=== PATIENT | female | born 1930 | race Caucasian/White ===

== ENCOUNTER 2017-02-04 11:16 | Inpatient (IN) | payer MEDICARE, BC ==
[~2017-02-04] VITALS: Ht 154.9 cm; Wt 48.1 kg
[~2017-02-04 11:16] MED LIST: GABA100C14 PO; NITR50CA38 PO; TOLT4CAP13 PO
[2017-02-04] MEDS ORDERED: SOD CHLORIDE 0.9% 500 ML IV STA (11:26)
[2017-02-04 11:50] LABS: BASOPHILS % 0.5 % (0.0-2.0); EOSINOPHILS # 0.1 10^3/ul (0.0-0.5); EOSINOPHILS % 1.6 % (0.0-7.0); HEMATOCRIT 33.7 % (37.0-47.0); HEMOGLOBIN 10.9 g/dl (12.0-16.0); LYMPHOCYTES # 0.8 10^3/ul (0.8-2.9); LYMPHOCYTES % 14.1 % (15.0-51.0); MEAN CORPUSCULAR HEMOGLOBIN 29.1 pg (29.0-33.0); MEAN CORPUSCULAR HGB CONC 32.3 g/dl (32.0-37.0); MEAN CORPUSCULAR VOLUME 89.9 fl (82.0-101.0); MEAN PLATELET VOLUME 10.2 fl (7.4-10.4); MONOCYTE # 0.5 10^3/ul (0.3-0.9); MONOCYTES % 8.3 % (0.0-11.0); NEUTROPHIL # 4.2 10^3/ul (1.6-7.5); PLATELET COUNT 398 10^3/UL (140-415); RED BLOOD COUNT 3.75 10^6/ul (4.20-5.40); WHITE BLOOD COUNT 5.5 10^3/ul (4.8-10.8)
[2017-02-04 12:22] LABS: ANION GAP 15 (8-16); BLOOD UREA NITROGEN 16 mg/dl (7-20); CALCIUM 9.4 mg/dl (8.4-10.2); CARBON DIOXIDE 28 mmol/L (21-31); CHLORIDE 102 mmol/L (97-110); CREATININE 0.75 mg/dl (0.44-1.00); GLUCOSE 180 mg/dl (70-220); SODIUM 141 mmol/L (135-144)
[2017-02-04 12:32] LABS: TROPONIN-I < 0.012 ng/ml (0.00-0.12)
--- NOTE | 2017-02-04 12:42 | RADRPT ---
PROCEDURE: CT Brain without contrast. CLINICAL INDICATION: Syncope. TECHNIQUE: A CT of the brain was performed on multidetector high-resolution CT scanner utilizing a xial sections from the skull base through the vertex without contrast. The scan was reviewed in sof t tissue brain and high frequency resolution bone algorithm windows. Images were reviewed on a high -resolution PACS workstation. One or more the following does reduction techniques were utilized: Aut omated exposure control, adjustment of the mA/ or kV according to patient's size, or use of iterativ e reconstruction technique. The exam CTDI = 44.11 mGy and the DLP = 720.23 mGy-cm. DICOM images are available. COMPARISON: Brain CT 03/09/2015. FINDINGS: The ventricles and sulci are moderately prominent indicative of volume loss. There is no intracrani al hemorrhage, mass effect or midline shift. No abnormal intra-axial or extra-axial fluid collectio ns are seen. The sanchez/white matter differentiation is preserved. There are moderate foci of hypoattenuation in the periventricular, deep, and subcortical white matte r, which are nonspecific in etiology but likely reflect chronic small vessel ischemic changes. Ther e are moderate intracranial vascular calcifications consistent with atherosclerosis. The visualized paranasal sinuses are essentially clear. There is thinning of bilateral lens indicative of prior le ns replacement. IMPRESSION: 1. No acute intracranial hemorrhage, transcortical infarction or mass effect. 2. Moderate intracranial atherosclerosis and chronic small vessel ischemic changes. 3. Moderate generalized cerebral volume loss. RPTAT: HH .Jarred Felder MD, MD Date Time Electronically viewed and signed by .Jarred Felder MD, MD on 02/04/2017 12:42 .N/
--- NOTE | 2017-02-04 13:15 | RADRPT ---
PROCEDURE: Carotid ultrasound CLINICAL INDICATION: Syncope, carotid bruits TECHNIQUE: Cannon scale, color doppler, spectral doppler ultrasound of the bilateral carotid and cathy tebral arteries. This study indirectly references the measurement of the distal ICA diameter as the denominator for s tenosis measurement. Validated velocity measurements with angiographic measurements, velocity criter ia are extrapolated from diameter data as defined by: *Cartoid artery stenosis: cannon-scale and Doppl er US diagnosis. Society of Radiologists in Ultrasound Consensus Conference. Radiology 2003; 229: 34 0-346. SRU Consensus Conference Criteria for the Diagnosis of Carotid Artery Stenosis* Degree of Stenosis, % ICA PSV, cm/sec Plaque Estimate, % ICA/CCA PSV Ratio Normal <125 None <2.0 <50 <125 <50 <2.0 50 69 125-230 >50 2.0-4.0 >70 but less than near occlusion >230 >50 <4.0 Near occlusion High, low, or undetectable Visible Variable Total occlusion Undetectable Visible, no detectable lumen Not applicable COMPARISON: No prior studies are available for comparison. FINDINGS: Location Right CCA36 - 48 cm/sec Prox ICA 36 cm/sec Mid ICA41 cm/sec Dist ICA65 cm/sec LKU031 cm/sec ICA/CCA1.4 Left CCA47 - 54 cm/sec Prox ICA 45 cm/sec Mid ICA53 cm/sec Dist ICA60 cm/sec ECA81 cm/sec ICA/CCA1.2 Plaque burden: Small calcified plaques are present involving the bilateral common, internal, externa l carotid arteries. Antegrade flow is seen within the vertebral arteries bilaterally. IMPRESSION: Plaques are present within both internal carotid arteries without evidence of flow acceleration to s uggest a hemodynamically significant stenosis; less than 50% stenosis bilaterally. RPTAT: AADD .Bal Gomez MD, MD Date Time Electronically viewed and signed by .Bal Gomez MD, MD on 02/04/2017 13:15 .B/
[2017-02-04] MEDS ORDERED: ONDANSETRON 4 MG INJ IV PRN ×2 (13:30→14:00)
[2017-02-04] MEDS ORDERED: ACETAMINOPHEN 325 MG TAB PO PRN ×2 (13:30→14:00)
--- NOTE | 2017-02-04 13:43 | ERD ---
ER Documentation Chief Complaint Chief Complaint BIB RA FROM HOME SYNCOPAL EPISODE IN BATHROOM , NO TRAUMA HPI Patient is an 86-year-old female who presents with a caregiver for "foaming at the mouth". She was brought in by ambulance. Please note the history and physical exam is limited secondary to the patient's mental status at baseline. She was "not conscious" per the daughter. Her sugar was 233. She did lose control of her bowel in the living room. Upon review of old medical records this is the patient's eighth visit to the ER since 2006. Dr. Thakkar is her primary doctor. ROS All systems reviewed and are negative except as per history of present illness. Medications Home Meds Discontinued Reported Medications Nitrofurantoin Macrocrystal* (Macrodantin*) 50 Mg Cap, 50 MG PO DAILY, CAP 03/09/15 Tolterodine Tartrate* (Tolterodine Tartrate* ER) 4 Mg Cap.er.24h, 4 MG PO DAILY , CAP 03/18/14 Gabapentin* (Gabapentin*) 100 Mg Capsule, 100 MG PO TID, CAP 03/18/14 Allergies Allergies: Coded Allergies: No Known Allergy (Verified , 02/04/17) PMhx/Soc History of Surgery: Yes (cholecystectomy, colonoscopy) Anesthesia Reaction: No Hx Neurological Disorder: No Hx Respiratory Disorders: No Hx Cardiac Disorders: No Hx Psychiatric Problems: No Hx Miscellaneous Medical Probl: Yes (spinal sten, shingles, overactive bladder , diverticular disease,dementia) Hx Alcohol Use: Yes (SMALL [place]IVERA ONCE A MONTH) Hx Substance Use: No Hx Tobacco Use: No Smoking Status: Never smoker FmHx Family History: No diabetes Physical Exam Vitals Vital Signs Date Time Temp Pulse Resp B/P Pulse Ox O2 Delivery O2 Flow Rate FiO2 02/04/17 11:30 97.8 73 18 150/69 99 Physical Exam Const: No acute distress Head: Atraumatic Eyes: Normal Conjunctiva ENT: Normal External Ears, Nose and Mouth. Neck: Full range of motion..~ No meningismus. Resp: Clear to auscultation bilaterally Cardio: Regular rate and rhythm, no murmurs Abd: Soft, non tender, non distended. Normal bowel sounds Skin: No petechiae or rashes Back: No midline or flank tenderness Ext: No cyanosis, or edema Neur: Awake and demented at baseline Result Diagram: 02/04/17 1130 02/04/17 1130 Results 24 hrs Laboratory Tests Test 02/04/17 11:30 02/04/17 11:37 White Blood Count 5.510^3/ul Red Blood Count 3.7510^6/ul Hemoglobin 10.9g/dl Hematocrit 33.7% Mean Corpuscular Volume 89.9fl Mean Corpuscular Hemoglobin 29.1pg Mean Corpuscular Hemoglobin Concent 32.3g/dl Red Cell Distribution Width 15.0% Platelet Count 32908^3/UL Mean Platelet Volume 10.2fl Neutrophils % 75.0% Lymphocytes % 14.1% Monocytes % 8.3% Eosinophils % 1.6% Basophils % 0.5% Nucleated Red Blood Cells % 0.0/100WBC Neutrophils # 4.210^3/ul Lymphocytes # 0.810^3/ul Monocytes # 0.510^3/ul Eosinophils # 0.110^3/ul Basophils # 0.010^3/ul Nucleated Red Blood Cells # 0.010^3/ul Sodium Level 141mmol/L Potassium Level 4.0mmol/L Chloride Level 102mmol/L Carbon Dioxide Level 28mmol/L Anion Gap 15 Blood Urea Nitrogen 16mg/dl Creatinine 0.75mg/dl Glucose Level 180mg/dl Calcium Level 9.4mg/dl Troponin I < 0.012ng/ml Bedside Glucose 76mg/dL Current Medications Medications (Trade) Dose Ordered Sig/Liliya Route PRN Reason Start Time Stop Time Status Last Admin Dose Admin Sodium Chloride (NS) 500 ml @ 500 mls/hr Q1H STAT IV 02/04/17 11:26 02/04/17 11:32 DC Ondansetron HCl (Zofran Inj) 4 mg ER BRIDGE PRN IV NAUSEA AND/OR VOMITING 02/04/17 13:30 02/05/17 13:29 Acetaminophen 650 mg 650 mg ER BRIDGE PRN PO MILD PAIN/FEVER 02/04/17 13:30 02/05/17 13:29 Sodium Chloride (NS) 1,000 ml @ 50 mls/hr Q20H IV 02/04/17 13:33 UNV IV Flush (NS 3 ml) 3 ml PER PROTOCOL IV 02/04/17 14:00 UNV Ondansetron HCl (Zofran Inj) 4 mg Q6H PRN IV NAUSEA AND/OR VOMITING 02/04/17 14:00 UNV Acetaminophen (Tylenol Tab) 650 mg Q6H PRN PO PAIN LEVEL 1-3 OR FEVER 02/04/17 14:00 UNV Alprazolam (Xanax) 0.25 mg BID PRN PO ANXIETY 02/04/17 14:00 UNV Procedures/MDM EKG read by me: Rate/Rhythm: Regular rate and rhythm at a normal rate Intervals: Normal Impression: Irregular baseline but appears to be a normal CT brain shows no hemorrhage per radiology. Ultrasound of the carotid arteries show no significant stenosis per radiology. Patient is an 86-year-old female with dementia who presents with syncope. Given her age I believe admission for telemetry observation would be appropriate. Dr. Thakkar is come to the bedside to evaluate. The patient has anemia with a hemoglobin of 10.9 but does not require transfusion at this time. I doubt stroke, intracranial hemorrhage, or intracranial mass. I doubt acute coronary syndrome at this time. Departure Diagnosis: Primary Impression: Syncope Syncope type: unspecified Qualified Code: R55 - Syncope, unspecified syncope type Condition: Fair Patient Instructions: Causes of Syncope Referrals: SIDRA THAKKAR MD (PCP) Additional Instructions: Call your primary care doctor TOMORROW for an appointment during the next 1-2 days.See the doctor sooner or return here if your condition worsens before your appointment time. HERMINIA BACH MD Feb 04, 2017 13:43
[2017-02-04] MEDS ORDERED: ALPRAZOLAM 0.25 MG TAB PO PRN (14:00)
[2017-02-04] MEDS ORDERED: NACL 0.9% 3 ML SYG IV SCH (14:00)
--- NOTE | 2017-02-04 14:21 | HP ---
DATE OF ADMISSION: 02/04/2017 IDENTIFYING DATA: The patient is an 86-year-old female admitted to the hospital after experiencing a syncopal episode approximately 4 hours prior to admission. HISTORICAL EVENTS: Per discussion with the patient's caregiver and daughter, she had an uneventful breakfast this morning, walked to the bathroom, sat on the commode and had a loose stool. It was wh ile she was sitting on the commode that the caregiver suddenly noticed her to be "slumping over", be nt at the waist and breathing heavy with some saliva or frothiness emanating from her mouth. She di d not fall and hit the ground. She comforted her and gently let her rest on the ground. She did le ak a bit of stool, had no urinary incontinence, did not bite her tongue. After the event, she did n ot complain of any chest pain, shortness of breath. Presently denies headache, similarly denying sh ortness of breath, chest pain, nausea, vomiting and there were no symptoms of gross GI bleeding. MEDICATIONS: Include aspirin 81 daily. PAST MEDICAL HISTORY: Includes: 1. Longstanding depression. 2. History of spinal stenosis. 3. Last colonoscopy in 06/2005. 4. Serial PHARMACY PICKING TECH imaging studies most recently in 05/2012 revealed microvascular changes and moderate ventriculomegaly. 5. Remote history of shingles. 6. Known overactive bladder as revealed by urologic evaluation in 07/2013. 7. Last upper GI endoscopy revealed mild inflammation of the stomach. 8. Weight loss detected in 09/2012. CT of the abdomen and pelvis revealed diverticular disease. 9. Neurologic evaluation most recently rendered by Dr. Thurston at [facility] in 05/2012 revealed finding s thought compatible with parkinsonism as revealed by review of the SPECT scan. 10. History of left Estevez palsy in 11/2014. 11. Hospitalized in 03/2014 for bronchitis and focal pneumonitis. ALLERGIES OR INTOLERANCES: INCLUDE PROZAC. PHYSICAL EXAMINATION: GENERAL: Comfortable appearing female in no acute distress. VITAL SIGNS: BP 168/80, pulse 70, respirations are 20, she was afebrile. EYES: Extraocular muscles were full. NOSE, MOUTH, AND THROAT: Normal. NECK: Supple. There was no jugular venous distention, thyroid enlargement or adenopathy. Carotids 2+, no bruits. LUNGS: Clear. HEART: Rhythm regular, no murmur. No third or fourth sound. ABDOMEN: Nontender. Liver and spleen were not palpable. No masses or tenderness were noted. EXTREMITIES: No edema, no calf tenderness. NEUROLOGIC: No lateralizing motor weakness. She was oriented to place and person, but not to time. IMPRESSION: 1. Syncopal episode. I think likely vasovagal with related hypotension and seizure activity. We w ill need to exclude dysrhythmia. 2. Longstanding depression and mild to moderate impairments in cognition related to small vessel in tracranial disease. 3. Chronic anemia. 4. Reviewed with the patient's daughter. Chemical code status will be indicated with no cardiopulm onary resuscitation or intubation. Neurology and cardiology to evaluate. EEG has been ordered as well as echocardiogram. Dictated By: SIDRA DOMINIQUE/JOEY Conf#: [id number] DID#: [id number]
--- NOTE | 2017-02-04 14:36 | RADRPT ---
PROCEDURE: XR Chest. CLINICAL INDICATION: Shortness of breath. TECHNIQUE: Single frontal view. COMPARISON: 03/20/2014. FINDINGS: There is mild left basilar atelectasis. The lungs are otherwise clear. The heart size is normal. There is calcification in the aorta consistent with atherosclerosis. There is no pleural effusion. There is no pneumothorax. IMPRESSION: 1. Mild left basilar atelectasis. 2. Atherosclerosis. 3. Otherwise unremarkable chest radiograph. RPTAT: QQ .Tera Cervantes MD, Date Time Electronically viewed and signed by .Tera Cervantes MD, on 02/04/2017 14:35 .R/
[2017-02-04 14:48] LABS: IRON 56 ug/dl (35-150)
[2017-02-04 14:49] LABS: ALBUMIN 3.7 g/dl (3.3-4.9); BILIRUBIN,INDIRECT 0.4 mg/dl (0-1.1); BILIRUBIN,TOTAL 0.4 mg/dl (0.2-1.3); MAGNESIUM 2.1 mg/dl (1.7-2.5); TOTAL PROTEIN 6.9 g/dl (6.1-8.1)
[2017-02-04 14:58] LABS: TOTAL IRON BINDING CAPACITY 329 ug/dl (241-421)
--- NOTE | 2017-02-04 15:22 | RADRPT ---
Echocardiogram Report ADDENDUM Patient Name: ANNALISE PURDY Gender: Female Date: 1930 Study Date: 04-Feb-2017 Safety Sealer: Dutch Parrish [facility] Location: [facility] Ref. Physician: SIDRA THAKKAR Quality: Adequate Procedures: Transthoracic echocardiogram with complete 2D, M-Mode, and doppler examination. Indications: Syncope. 2D/M Mode Doppler Measurement Value Normal Ranges Measurement Value Normal Ranges LVIDd 2D 4.0 3.5 - 5.6 cm AV Peak Ifeanyi 1.7 m/sec LVIDs 2D 2.7 2.1 - 4.1 cm AV Peak PG 11.0 mmHg FS 2D 32.0 % LVOT Peak Ifeanyi 1.0 m/sec LVPWd 2D 0.8 0.6 - 1.1 cm LVOT Peak PG 4.0 mmHg IVSd 2D 1.5 0.6 - 1.1 cm MV E Peak Ifeanyi 0.9 m/sec IVS/LVPW 2D 2.0 MV A Peak Ifeanyi 1.2 m/sec AoR Diam 2D 2.3 2.0 - 3.7 cm MV E/A 0.8 LA/Ao 2D 1 0 - 1 MV Decel Time 289 msec EDV 2D 64.0 cm3 MV E/A 0.8 ESV 2D 20.1 cm3 TR Peak Ifeanyi 2.4 m/sec LA Dimen 2D 3.1 2.3 - 4.0 cm TR Peak PG 23.0 mmHg RVSP 26.0 mmHg Findings Left Ventricle: Normal left ventricular systolic function. Normal left ventricular cavity size. Sigmoid septum. Ejection fraction is visually estimated at 60 %. Tissue Doppler/Mitral Doppler indices are consistent with impaired relaxation (Stage I diastolic dysfunction). Right Ventricle: Normal right ventricular size. Normal right ventricular systolic function. Left Atrium: The left atrium is normal in size. Right Atrium: The right atrium is normal in size. Mitral Valve: Mild mitral leaflet calcification. Mild mitral annular calcification. Trace mitral regurgitation. Aortic Valve: Normal appearance of the aortic valve. No significant aortic stenosis or insufficiency. Aortic cusps appear mildly calcified. Tricuspid Valve: Normal appearance of the tricuspid valve. Normal right ventricular systolic pressure. Estimated peak PA systolic pressure 26 mmHg. There is mild tricuspid regurgitation. Pulmonic Valve: Pulmonic valve not well visualized. There is trace pulmonic regurgitation. Pericardium: Small pericardial effusion. No echocardiographic evidence to suggest pericardial tamponade. Echogenic material seen within the pericardial space. Aorta: Normal aortic root. IVC: Normal size and normal respiratory collapse consistent with normal right atrial pressure. Conclusions Normal left ventricular systolic function. Normal left ventricular cavity size. Sigmoid septum. Ejection fraction is visually estimated at 60 %. Tissue Doppler/Mitral Doppler indices are consistent with impaired relaxation (Stage I diastolic dysfunction). Normal right ventricular size. Normal right ventricular systolic function. Normal appearance of the tricuspid valve. Normal right ventricular systolic pressure. Estimated peak PA systolic pressure 26 mmHg. There is mild tricuspid regurgitation. Small to moderate pericardial effusion, mostly anterior. No echocardiographic evidence to suggest pericardial tamponade. Echogenic material seen within the pericardial space. Normal size and normal respiratory collapse consistent with normal right atrial pressure. Electronically Signed By: Gómez Walsh 04-Feb-2017 15:22:19 -0800 [ADDENDUM] Patient Name: ANNALISE PURDY Study Date: 04-Feb-2017 [id number]
[2017-02-04 15:24] LABS: FERRITIN 49.4 ng/ml (11.1-264.0)
[2017-02-04 16:55] VITALS: BP 176/72; PULSE 83; RESP 20; Ht 154.9 cm; Wt 48.1 kg
[2017-02-04 17:01] VITALS: PULSE 77
[2017-02-04 20:00] VITALS: BP 133/55; RESP 20
[2017-02-04 20:05] VITALS: PULSE 80
--- NOTE | 2017-02-04 21:20 | CONS ---
DATE OF ADMISSION: 02/04/2017 DATE OF CONSULTATION: 02/04/2017 NEUROLOGICAL CONSULTATION Thank you, Dr. Thakkar, for your kind referral for evaluation of syncope versus seizure. HISTORY OF PRESENT ILLNESS: The patient is an 86-year-old lady with history of dementia and christiano onism. The patient's daughter, Sherrie, is at bedside providing details of the history. According to Sherrie, patient has a caregiver. She uses walker or cane for ambulation. She is able to conver se. She was diagnosed with parkinsonism by neurologist at [facility], and she is following with n eurologist at [facility]. According to Sherrie, patient does not take any medication, including a spirin. I asked her if she takes any medicine for dementia or parkinsonism and she said that patien t does not take anything. It was not clear to me why, if patient had any side effects to the medici ok or it was neurologist who recommended to not continue medicine for parkinsonism/Parkinson diseas e after a trial. Patient was on the commode and she slumped over, lost consciousness, started breathing heavily, did not fall as caregiver was next to her, but she was either foaming or from foaming her saliva. Accor ding to Sherrie, at that time, patient was having jerk-like movements in the upper extremities. It happened right after patient had a bowel movement. In the hospital, the patient had a CAT scan of the head which did not show any acute abnormality. H er labs showed WBC count 5.5, hemoglobin 10.9, hematocrit 33.3, normal platelets, BUN 16, creatinine 0.75. Liver function tests within normal limits. TSH 12. Troponins negative. There is no urinal ysis on file. She had carotid ultrasound which shows absence of hemodynamically significant lesions . Chest x-ray unremarkable. ALLERGIES: NONE. SOCIAL HISTORY: No alcohol, tobacco, drug use. FAMILY HISTORY: Noncontributory. PHYSICAL EXAMINATION: VITAL SIGNS: Today, 98.4 temperature, pulse 77, respirations 20, blood pressure 176/72. GENERAL: She is not in acute distress, lying in bed. HEENT: Normocephalic, atraumatic head. NECK: No carotid bruits. No thyromegaly. LUNGS: Clear to auscultation bilaterally. CARDIAC: Normal cardiac rhythm and sounds. ABDOMEN: Soft, nontender. EXTREMITIES: No cyanosis, clubbing or edema. NEUROLOGIC: She is awake, oriented x1 only. She said that she is in the parking lot. She does hav e fluent speech, present response to visual threat bilaterally. Pupils reactive sluggishly from 3 t o 2 mm bilaterally. Extraocular movements intact. No nystagmus. Symmetrical face. Preserved faci al strength and sensation. Tongue is in midline. Palate elevates symmetrically. Motor strength ex amination shows preservation of strength, increased tone, especially in upper extremities with cogwh eeling. Some bradykinesia noticed. Sensory examination grossly intact to light touch and pain. De ep tendon reflexes 2+ upper extremities and knees, absent ankle jerks. Upgoing toes bilaterally. C oordination preserved on [id number] testing. No dysmetria. Predominantly fine resting tremor was noticed, some amount of postural tremor was seen as well in the upper extremities. Gait was no t assessed. IMPRESSION: Status post syncopal episode with "convulsive syncope" versus seizure. I tend to think that patient had syncopal episodes given that it happened on the commode after bowel movement and c ould have some vasovagal component. I do not see urinalysis on the file. I do not know if patient is going to have one. Probably it is reasonable to try to obtain orthostatic vital signs. Echocard iogram was done and shows ejection fraction of 60, otherwise moderate pericardial effusion, but no t amponade. EEG was requested. I will review. I would not start the patient on any antiepileptic co verage right now. Thank you very much for this interesting consultation. It is predominantly decision of the family w hether or not to use medications for dementia and Parkinson disease. I would not start any right no w. Dictated By: JIAN GONZALEZ/JOEY Conf#: [id number] DID#: [id number] CC: SIDRA THAKKAR MD; SELENA KASPER MD;*[facility]*
[2017-02-04] MEDS: SOD FERRIC GLUC COMPLX 125 MG in SOD CHLORIDE 0.9% 100 ML IVPB SCH (22:07)
[2017-02-04] MEDS: SOD CHLORIDE 0.9% 1,000 ML IV SCH (22:07)
--- NOTE | 2017-02-04 23:40 | CONS ---
Date/Time of Note Date/Time of Note DATE: 02/04/17 TIME: 23:37 Assessment/Plan Assessment/Plan Chief Complaint/Hosp Course Syncope- unclear etiology, could be vasovagal vs. neuro in etiology. given advanced dementia, unclear of benefit from aggressive testing. will obtain basic cardiac workup and follow neuro w/u. consider other options pending results. - tele monitoring - echo obtained, normal lv systolic/valve function, has pericardial effusion, not HD significant unlikely to be cause of syncope - serial trop/ekg - obtain carotid u/s - check orthostatics Cognitive d/o- per neuro/pcp, progression per family is recent. ? delrium HTN- controlled, cont home meds Problems: Consultation Date/Type/Reason Admit Date/Time Feb 04, 2017 at 13:11 Date of Consultation: Feb 04, 2017 Type of Consultation: Cardiology Reason for Consultation Syncope Referring Provider: SIDRA THAKKAR MD Hx of Present Illness Miss Yañez is a 86-year-old woman with a history of cognitive disorder but no previous cardiac history. Patient is currently confused and unable to provide accurate history. History obtained from family at bedside as well as from the chart/primary care physician. Patient apparently was helped to the commode today sat down and had a loose stool and then was found slumped over by a game preserve manager. Patient with heavy breathing and brought to from her mouth. Patient lowered to the ground and had regained consciousness. No chest pain shows of breath reported no palpitations dizziness sinus. No witnessed seizure type activity. pt with worsening dementia per family at bedside over last 2 weeks. a+o to person only currently no fevers, chills sweats. attempted but pt with AMS and unable to provide accurate/complete ROS history Past Medical History HTN Cognitive Disorder Spinal Stenosis Overactive Bladder Past Surgical History cholecystecomy Family History Significant Family History: other (cad + father) Social History Alcohol Use: none Smoking Status: Never smoker Drug Use: none Exam/Review of Systems Vital Signs Vitals Vital Signs Date Time Temp Pulse Resp B/P Pulse Ox O2 Delivery O2 Flow Rate FiO2 02/04/17 20:05 80 02/04/17 20:00 98.9 20 133/55 98 02/04/17 16:04 Room Air Exam Constitutional: alert, No oriented Psych: confusion, no complaints Head: atraumatic, normocephalic Eyes: nl conjunctiva ENMT: nl external ears & nose, No nl lips & teeth Neck: supple, No jvd Respiratory: clear to auscultation, normal air movement Cardiovascular: nl pulses, regular rate and rhythm, systolic murmur, No S3, No S4, No edema, No irregular rhythm Gastrointestinal: non-tender, soft Musculoskeletal: other (decreased muscle mass) Extremities: normal pulses Neurological: RN PALLIATIVE II-XII intact, nl speech, nl strength, No nl mental status Skin: nl turgor Results Result Diagram: 02/04/17 1130 02/04/17 1130 Results 24 hrs Laboratory Tests Test 02/04/17 11:25 02/04/17 11:30 02/04/17 11:37 Magnesium Level 2.1 Iron Level 56 Total Iron Binding Capacity 329 Percent Iron Saturation 17 L Ferritin 49.4 Total Bilirubin 0.4 Direct Bilirubin 0.00 Indirect Bilirubin 0.4 Aspartate Amino Transf (AST/SGOT) 26 Alanine Aminotransferase (ALT/SGPT) 25 Alkaline Phosphatase 100 Total Protein 6.9 Albumin 3.7 Thyroid Stimulating Hormone (TSH) 12.000 H White Blood Count 5.5 # Red Blood Count 3.75 L Hemoglobin 10.9 L Hematocrit 33.7 L Mean Corpuscular Volume 89.9 Mean Corpuscular Hemoglobin 29.1 Mean Corpuscular Hemoglobin Concent 32.3 Red Cell Distribution Width 15.0 H Platelet Count 398 Mean Platelet Volume 10.2 # Neutrophils % 75.0 Lymphocytes % 14.1 L Monocytes % 8.3 Eosinophils % 1.6 Basophils % 0.5 Nucleated Red Blood Cells % 0.0 Neutrophils # 4.2 Lymphocytes # 0.8 Monocytes # 0.5 Eosinophils # 0.1 Basophils # 0.0 Nucleated Red Blood Cells # 0.0 Sodium Level 141 Potassium Level 4.0 Chloride Level 102 Carbon Dioxide Level 28 Anion Gap 15 Blood Urea Nitrogen 16 Creatinine 0.75 Glucose Level 180 Calcium Level 9.4 Troponin I < 0.012 Bedside Glucose 76 Medications Medications Current Medications Sodium Chloride (NS) 1,000 ml @ 50 mls/hr Q20H IV Last administered on t 22:07; Admin Dose 50 MLS/HR; Start 02/04/17 at 13:33 Ondansetron HCl (Zofran Inj) 4 mg Q6H PRN IV NAUSEA AND/OR VOMITING; Start at 14:00 Acetaminophen (Tylenol Tab) 650 mg Q6H PRN PO PAIN LEVEL 1-3 OR FEVER; Start 02/04/17 at 14:00 Alprazolam 0.25 mg 0.25 mg BID PRN PO ANXIETY; Start 02/04/17 at 14:00 Ferric Sodium Gluconate Complex/ Sodium Chloride (Ferrlecit/NS) 110 ml @ 100 mls/hr Q24H IVPB Last administered on 02/04/17t 22:07; Admin Dose 100 MLS/HR; Start 02/04/17 at 23:30; Stop 02/07/17 at 00:35 Procedures Procedures EKG: very poor baseline, no acute st changes Echo report reviewed in emr cxr report reviewed in emr MARILIN RODRIGUES Feb 04, 2017 23:40
[2017-02-04 23:50] VITALS: BP 139/63; RESP 20
[2017-02-05] VITALS (11 sets, daily range): BP systolic 106–181; BP diastolic 53–78; PULSE 61–80; RESP 17–20
[2017-02-05 07:35] LABS: BASOPHILS % 0.4 % (0.0-2.0); EOSINOPHILS # 0.2 10^3/ul (0.0-0.5); EOSINOPHILS % 2.3 % (0.0-7.0); HEMATOCRIT 29.6 % (37.0-47.0); HEMOGLOBIN 9.6 g/dl (12.0-16.0); LYMPHOCYTES # 0.7 10^3/ul (0.8-2.9); LYMPHOCYTES % 10.3 % (15.0-51.0); MEAN CORPUSCULAR HEMOGLOBIN 29.4 pg (29.0-33.0); MEAN CORPUSCULAR HGB CONC 32.4 g/dl (32.0-37.0); MEAN CORPUSCULAR VOLUME 90.8 fl (82.0-101.0); MEAN PLATELET VOLUME 10.2 fl (7.4-10.4); MONOCYTE # 0.8 10^3/ul (0.3-0.9); MONOCYTES % 11.3 % (0.0-11.0); NEUTROPHIL # 5.3 10^3/ul (1.6-7.5); NEUTROPHILS % 75.4 % (39.0-77.0); PLATELET COUNT 360 10^3/UL (140-415); RED BLOOD COUNT 3.26 10^6/ul (4.20-5.40); RED CELL DISTRIBUTION WIDTH 14.8 % (11.5-14.5)
[2017-02-05 08:02] LABS: INR 1.12; PROTIME 14.4 Sec (12.2-14.2); PT RATIO 1.1
[2017-02-05 08:03] LABS: PARTIAL THROMBOPLASTIN TIME 52.3 Sec (25.0-35.0)
[2017-02-05 08:09] LABS: ALBUMIN 3.3 g/dl (3.3-4.9); ALBUMIN/GLOBULIN RATIO 1.17; BILIRUBIN,INDIRECT 0.2 mg/dl (0-1.1); BILIRUBIN,TOTAL 0.2 mg/dl (0.2-1.3); CALCIUM 9.1 mg/dl (8.4-10.2); CREATININE 0.75 mg/dl (0.44-1.00); POTASSIUM 3.7 mmol/L (3.5-5.1); TOTAL PROTEIN 6.1 g/dl (6.1-8.1)
--- NOTE | 2017-02-05 08:18 | PN ---
Date/Time of Note Date/Time of Note DATE: 02/05/17 TIME: 08:15 Assessment/Plan VTE Prophylaxis VTE Prophylaxis Intervention: other Lines/Catheters IV Catheter Type (from Nrs): Peripheral IV Urinary Cath still in place: No Assessment/Plan Assessment/Plan 1. Syncope prob vasovagal, neuro and cards eval apprec, eeg pending, ht echo noted and carotid us, rhythm is sinus 2. Mild hypothyroidism, will start synthroid 3. Anemia noted, will pursue 4. 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 Case management requested Subjective 24 Hr Interval Summary Respiratory: cough, shortness of breath Cardiovascular: No chest pain, No lightheadedness Gastrointestinal: no complaints Neurologic: No headache Exam/Review of Systems Vital Signs Vitals Vital Signs Date Time Temp Pulse Resp B/P Pulse Ox O2 Delivery O2 Flow Rate FiO2 02/05/17 08:05 98.0 63 20 106/53 98 02/04/17 16:04 Room Air Intake and Output 02/04/17 02/04/17 02/05/17 15:00 23:00 07:00 Intake Total 850 ml Balance 850 ml Exam Neck: No jvd Respiratory: clear to auscultation Cardiovascular: regular rate and rhythm Gastrointestinal: soft Extremities: No edema (and no calf tend) Neurological: other (lethargic (given xanax last night)), No focal weakness Results Result Diagram: 02/05/17 0659 02/04/17 1130 Results 24 hrs Laboratory Tests Test 02/04/17 11:25 02/04/17 11:30 02/04/17 11:37 02/05/17 06:59 Magnesium Level 2.1 Iron Level 56 Total Iron Binding Capacity 329 Percent Iron Saturation 17 L Ferritin 49.4 Total Bilirubin 0.4 Direct Bilirubin 0.00 Indirect Bilirubin 0.4 Aspartate Amino Transf (AST/SGOT) 26 Alanine Aminotransferase (ALT/SGPT) 25 Alkaline Phosphatase 100 Total Protein 6.9 Albumin 3.7 Thyroid Stimulating Hormone (TSH) 12.000 H White Blood Count 5.5 # 7.0 # Red Blood Count 3.75 L 3.26 L Hemoglobin 10.9 L 9.6 L Hematocrit 33.7 L 29.6 L Mean Corpuscular Volume 89.9 90.8 Mean Corpuscular Hemoglobin 29.1 29.4 Mean Corpuscular Hemoglobin Concent 32.3 32.4 Red Cell Distribution Width 15.0 H 14.8 H Platelet Count 398 360 Mean Platelet Volume 10.2 # 10.2 Neutrophils % 75.0 75.4 Lymphocytes % 14.1 L 10.3 L Monocytes % 8.3 11.3 H Eosinophils % 1.6 2.3 Basophils % 0.5 0.4 Nucleated Red Blood Cells % 0.0 0.0 Neutrophils # 4.2 5.3 Lymphocytes # 0.8 0.7 L Monocytes # 0.5 0.8 Eosinophils # 0.1 0.2 Basophils # 0.0 0.0 Nucleated Red Blood Cells # 0.0 0.0 Sodium Level 141 Potassium Level 4.0 Chloride Level 102 Carbon Dioxide Level 28 Anion Gap 15 Blood Urea Nitrogen 16 Creatinine 0.75 Glucose Level 180 Calcium Level 9.4 Troponin I < 0.012 Bedside Glucose 76 Prothrombin Time 14.4 H Prothrombin Time Ratio 1.1 INR International Normalized Ratio 1.12 Activated Partial Thromboplast Time 52.3 H Medications Medications Current Medications Sodium Chloride (NS) 1,000 ml @ 50 mls/hr Q20H IV Last administered on 22:07; Admin Dose 50 MLS/HR; Start 02/04/17 at 13:33 Ondansetron HCl (Zofran Inj) 4 mg Q6H PRN IV NAUSEA AND/OR VOMITING; Start at 14:00 Acetaminophen (Tylenol Tab) 650 mg Q6H PRN PO PAIN LEVEL 1-3 OR FEVER; Start 02/04/17 at 14:00 Alprazolam 0.25 mg 0.25 mg BID PRN PO ANXIETY Last administered on 02/05/17 03:52; Admin Dose 0.25 MG; Start 02/04/17 at 14:00 Ferric Sodium Gluconate Complex/ Sodium Chloride (Ferrlecit/NS) 110 ml @ 100 mls/hr Q24H IVPB Last administered on 02/04/17 22:07; Admin Dose 100 MLS/HR; Start 02/04/17 at 23:30; Stop 02/07/17 at 00:35 SIDRA THAKKAR MD Feb 05, 2017 08:18
[2017-02-05 09:57] LABS: PARTIAL THROMBOPLASTIN TIME 50.9 Sec (25.0-35.0)
[2017-02-05 14:59] LABS: 50/50 PTT IMMED 36.5 Sec
[2017-02-05 15:11] LABS: 50/50 PTT 1 HOUR 36.3 Sec
[2017-02-05] MEDS: AMLODIPINE 2.5 MG TAB PO SCH ×2 (17:06→21:00)
[2017-02-05] MEDS ORDERED: ALPRAZOLAM 0.25 MG TAB PO PRN (21:00)
--- NOTE | 2017-02-05 21:30 | SP ---
DATE OF PROCEDURE: 02/05/2017 PROCEDURE: Electroencephalogram. INDICATION: The patient is an 86-year-old lady status post convulsive syncope versus seizure. DESCRIPTION OF PROCEDURE: Routine EEG was recorded digitally. [id number] and [id number] zain ages were recorded and reviewed. All impedances were measured and recorded. Cap electrodes were pl aced in accordance with International 10-20 system of electrode placement. FINDINGS: Symmetrically distributed background activity ranging in frequency between 4 to 8 cycles per second was seen most of the recording. Eye opening attenuates the background. Photic stimulati on produces no definite driving. No definite epileptiform transients were seen. No signs of ongoing electrographic seizures. No lat eralized slowing observed. Intermittent movement and muscle artifacts present throughout the record ing. IMPRESSION: Abnormal study secondary to background slowing which could reflect presence of encephal opathy, possibly toxic metabolic etiology. The finding is nonspecific. Please correlate clinically . No epileptiform activity is seen. Dictated By: JIAN GONZALEZ/JOEY Conf#: [id number] DID#: [id number] CC: SELENA KASPER MD;*EndCC*
[2017-02-05] MEDS: SOD CHLORIDE 0.9% 1,000 ML IV SCH (23:24)
--- NOTE | 2017-02-05 23:56 | CONS ---
Date/Time of Note Date/Time of Note DATE: 02/05/17 TIME: 23:55 Assessment/Plan Assessment/Plan Chief Complaint/Hosp Course Syncope- unclear etiology, could be vasovagal vs. neuro in etiology. given advanced dementia, unclear of benefit from aggressive testing. will obtain basic cardiac workup and follow neuro w/u. consider other options pending results. - tele monitoring no events - echo obtained, normal lv systolic/valve function, has pericardial effusion, not HD significant unlikely to be cause of syncope - serial trop/ekg negative - obtain carotid u/s negative - neuro consultion -pt/ot eval Confusion- likely with cognitive disorder, defer to primary/neuro HTN controlled Problems: Consultation Date/Type/Reason Admit Date/Time Feb 04 Initial Consult Date 02/04/2017 Type of Consultation: Cardiology Reason for Consultation Syncope Referring Provider: SIDRA THAKKAR MD 24 HR Interval Summary Free Text/Dictation no acute events. pt remains pleasant, but confused. sh pt denies any cp/sob. no palpitations. states mildly lightheaded, no dizziness, falls. pt remains in bed. tele reviewe: NSR no pauses/blocks/events Constitutional: disoriented Detailed Summary Eyes: no complaints ENT: no complaints Respiratory: no complaints Cardiovascular: no complaints Gastrointestinal: no complaints Exam/Review of Systems Vital Signs Vitals Vital Signs Date Time Temp Pulse Resp B/P Pulse Ox O2 Delivery O2 Flow Rate FiO2 02/05/17 20:15 98.6 69 17 113/63 96 02/04/17 16:04 Room Air Intake and Output 02/04/17 02/04/17 02/05/17 15:00 23:00 07:00 Intake Total 850 ml Balance 850 ml Exam Constitutional: alert, No oriented Psych: confusion, no complaints Head: atraumatic, normocephalic Eyes: nl conjunctiva ENMT: nl external ears & nose, No nl lips & teeth Neck: supple, No jvd Respiratory: clear to auscultation, normal air movement Cardiovascular: nl pulses, regular rate and rhythm, systolic murmur, No S3, No S4, No edema, No irregular rhythm Gastrointestinal: non-tender, soft Musculoskeletal: other (decreased muscle mass) Extremities: normal pulses Neurological: PROTEOMICS SCIENTIST II-XII intact, nl speech, nl strength, No nl mental status Skin: nl turgor Results Result Diagram: 02/05/17 0659 02/05/17 0659 Results 24 hrs Laboratory Tests Test 02/05/17 06:59 02/05/17 08:57 White Blood Count 7.0 # Red Blood Count 3.26 L Hemoglobin 9.6 L Hematocrit 29.6 L Mean Corpuscular Volume 90.8 Mean Corpuscular Hemoglobin 29.4 Mean Corpuscular Hemoglobin Concent 32.4 Red Cell Distribution Width 14.8 H Platelet Count 360 Mean Platelet Volume 10.2 Neutrophils % 75.4 Lymphocytes % 10.3 L Monocytes % 11.3 H Eosinophils % 2.3 Basophils % 0.4 Nucleated Red Blood Cells % 0.0 Neutrophils # 5.3 Lymphocytes # 0.7 L Monocytes # 0.8 Eosinophils # 0.2 Basophils # 0.0 Nucleated Red Blood Cells # 0.0 Erythrocyte Sedimentation Rate 30 Prothrombin Time 14.4 H Prothrombin Time Ratio 1.1 INR International Normalized Ratio 1.12 Activated Partial Thromboplast Time 52.3 H 50.9 H Sodium Level 140 Potassium Level 3.7 Chloride Level 106 Carbon Dioxide Level 26 Anion Gap 12 Blood Urea Nitrogen 17 Creatinine 0.75 Glucose Level 80 # Calcium Level 9.1 Total Bilirubin 0.2 Direct Bilirubin 0.00 Indirect Bilirubin 0.2 Aspartate Amino Transf (AST/SGOT) 22 Alanine Aminotransferase (ALT/SGPT) 26 Alkaline Phosphatase 89 Total Protein 6.1 Albumin 3.3 Globulin 2.80 Albumin/Globulin Ratio 1.17 Mix PTT Normal Plasma Immediate 36.5 Mix PTT Normal Plasma 1 Hour 36.3 Medications Medications Current Medications Sodium Chloride (NS) 1,000 ml @ 50 mls/hr Q20H IV Last administered on 23:24; Admin Dose 50 MLS/HR; Start 02/04/17 at 13:33 Ondansetron HCl (Zofran Inj) 4 mg Q6H PRN IV NAUSEA AND/OR VOMITING; Start at 14:00 Acetaminophen 650 mg 650 mg Q6H PRN PO PAIN LEVEL 1-3 OR FEVER; Start at 14:00 Ferric Sodium Gluconate Complex/ Sodium Chloride (Ferrlecit/NS) 110 ml @ 100 mls/hr Q24H IVPB Last administered on 02/04/17 22:07; Admin Dose 100 MLS/HR; Start 02/04/17 at 23:30; Stop 02/07/17 at 00:35 Alprazolam (Xanax) 0.25 mg HS PRN PO ANXIETY; Start 02/05/17 at 21:00 Levothyroxine Sodium (Synthroid) 25 mcg DAILY@06 PO ; Start 02/06/17 at 06:00 Amlodipine Besylate (Norvasc) 2.5 mg BID PO Last administered on 02/05/17t 17: 06; Admin Dose 2.5 MG; Start 02/05/17 at 17:[address] report reviewed in emr MARILIN RODRIGUES Feb 05, 2017 23:56
[2017-02-06] VITALS (11 sets, daily range): BP systolic 117–196; BP diastolic 55–90; PULSE 45–92; RESP 17–20
[2017-02-06] MEDS: SOD CHLORIDE 0.9% 1,000 ML IV SCH (00:18)
[2017-02-06] MEDS: SOD FERRIC GLUC COMPLX 125 MG in SOD CHLORIDE 0.9% 100 ML IVPB SCH (00:18)
[2017-02-06] MEDS: LEVOTHYROXINE 25 MCG TAB PO SCH (06:42)
[2017-02-06 07:11] LABS: BASOPHILS % 0.5 % (0.0-2.0); EOSINOPHILS # 0.2 10^3/ul (0.0-0.5); EOSINOPHILS % 3.1 % (0.0-7.0); HEMATOCRIT 31.8 % (37.0-47.0); HEMOGLOBIN 10.4 g/dl (12.0-16.0); LYMPHOCYTES # 1.1 10^3/ul (0.8-2.9); LYMPHOCYTES % 17.6 % (15.0-51.0); MEAN CORPUSCULAR HEMOGLOBIN 29.5 pg (29.0-33.0); MEAN CORPUSCULAR HGB CONC 32.7 g/dl (32.0-37.0); MEAN CORPUSCULAR VOLUME 90.1 fl (82.0-101.0); MEAN PLATELET VOLUME 9.9 fl (7.4-10.4); MONOCYTE # 0.7 10^3/ul (0.3-0.9); MONOCYTES % 11.3 % (0.0-11.0); NEUTROPHIL # 4.3 10^3/ul (1.6-7.5); PLATELET COUNT 375 10^3/UL (140-415); RED BLOOD COUNT 3.53 10^6/ul (4.20-5.40); RED CELL DISTRIBUTION WIDTH 15.3 % (11.5-14.5); WHITE BLOOD COUNT 6.5 10^3/ul (4.8-10.8)
[2017-02-06 07:41] LABS: CALCIUM 9.7 mg/dl (8.4-10.2); CREATININE 0.77 mg/dl (0.44-1.00); MAGNESIUM 2.1 mg/dl (1.7-2.5); PHOSPHORUS 3.6 mg/dl (2.5-4.9)
--- NOTE | 2017-02-06 08:29 | PN ---
Date/Time of Note Date/Time of Note DATE: 02/06/17 TIME: 08:26 Assessment/Plan VTE Prophylaxis VTE Prophylaxis Intervention: other Lines/Catheters IV Catheter Type (from [facility]): Peripheral IV Urinary Cath still in place: No Assessment/Plan Assessment/Plan 1. Syncope prob sec to vasovagal phenomenon, card, neuro and eeg report noted. 2. Anemia is stable 3. Rev with her daughter yesterday, I favor transfer to [facility] for PT 4. Mild impaired cognitive fx, stable Subjective 24 Hr Interval Summary Respiratory: No cough, No shortness of breath Cardiovascular: No chest pain Gastrointestinal: no complaints Genitourinary: no complaints Neurologic: headache Exam/Review of Systems Vital Signs Vitals Vital Signs Date Time Temp Pulse Resp B/P Pulse Ox O2 Delivery O2 Flow Rate FiO2 02/06/17 08:13 98.0 83 18 185/82 98 02/04/17 16:04 Room Air Intake and Output 02/05/17 02/05/17 02/06/17 15:00 23:00 07:00 Intake Total 1200 ml 450 ml Balance 1200 ml 450 ml Exam Neck: No jvd Cardiovascular: regular rate and rhythm Gastrointestinal: soft Neurological: other (confused regarding recent events), No focal weakness Results Result Diagram: 02/06/17 0650 02/06/17 0650 Results 24 hrs Laboratory Tests Test 02/05/17 08:57 02/06/17 06:50 Activated Partial Thromboplast Time 50.9 H Mix PTT Normal Plasma Immediate 36.5 Mix PTT Normal Plasma 1 Hour 36.3 White Blood Count 6.5 Red Blood Count 3.53 L Hemoglobin 10.4 L Hematocrit 31.8 L Mean Corpuscular Volume 90.1 Mean Corpuscular Hemoglobin 29.5 Mean Corpuscular Hemoglobin Concent 32.7 Red Cell Distribution Width 15.3 H Platelet Count 375 Mean Platelet Volume 9.9 Neutrophils % 67.0 Lymphocytes % 17.6 Monocytes % 11.3 H Eosinophils % 3.1 Basophils % 0.5 Nucleated Red Blood Cells % 0.0 Neutrophils # 4.3 Lymphocytes # 1.1 Monocytes # 0.7 Eosinophils # 0.2 Basophils # 0.0 Nucleated Red Blood Cells # 0.0 Sodium Level 143 Potassium Level 4.0 Chloride Level 109 Carbon Dioxide Level 28 Anion Gap 10 Blood Urea Nitrogen 11 Creatinine 0.77 Glucose Level 89 Calcium Level 9.7 Phosphorus Level 3.6 Magnesium Level 2.1 Medications Medications Current Medications Sodium Chloride (NS) 1,000 ml @ 50 mls/hr Q20H IV Last administered on 00:18; Admin Dose 50 MLS/HR; Start 02/04/17 at 13:33 Ondansetron HCl (Zofran Inj) 4 mg Q6H PRN IV NAUSEA AND/OR VOMITING; Start at 14:00 Acetaminophen 650 mg 650 mg Q6H PRN PO PAIN LEVEL 1-3 OR FEVER; Start at 14:00 Ferric Sodium Gluconate Complex/ Sodium Chloride (Ferrlecit/NS) 110 ml @ 100 mls/hr Q24H IVPB Last administered on 02/06/17 00:18; Admin Dose 100 MLS/HR; Start 02/04/17 at 23:30; Stop 02/07/17 at 00:35 Alprazolam (Xanax) 0.25 mg HS PRN PO ANXIETY; Start 02/05/17 at 21:00 Levothyroxine Sodium (Synthroid) 25 mcg DAILY@06 PO Last administered on 06:42; Admin Dose 25 MCG; Start 02/06/17 at 06:00 Amlodipine Besylate (Norvasc) 2.5 mg BID PO Last administered on 02/05/17 17: 06; Admin Dose 2.5 MG; Start 02/05/17 at 17:00 SIDRA THAKKAR MD Feb 06, 2017 08:29
--- NOTE | 2017-02-06 10:09 | CONS ---
Date/Time of Note Date/Time of Note DATE: 02/06/17 TIME: 10:01 Assessment/Plan Assessment/Plan Chief Complaint/Hosp Course Syncope- unclear etiology, likely vasovagal while using commode. pt without events on tele, has nocturnal bradycardia without block/pauses this would not cause syncope. echo with normal lv/valve fxn. mild pericardial effusion, no e/ o tamponade this would not cause syncope. can have f/u study in 2-3 mo. neuro eval negative as well. given cognitive impairment, unclear of benefit from aggressive testing at this point. would cont to monitor after discharge for recurrence. - tele monitoring no events - echo obtained, normal lv systolic/valve function, has small pericardial effusion, not HD significant unlikely to be cause of syncope - trop/ekg without ischemic changes - obtain carotid u/s without sig lesion - no e/o seizures on neuro eval - no further testing needed at this time from cardiology perspective. would obtain f/u echo in 2-3 mo to eval for interval change. if recurrent event consider ischemic workup if clinically appropriate. Cognitive impairment- likely chronic with recent progression. defer eval/mgmt to pcp/neuro HTN- on amlodipine. Problems: Consultation Date/Type/Reason Admit Date/Time Feb 05, 2017 at 12:38 Initial Consult Date 02/05/2017 Type of Consultation: cardiology Reason for Consultation syncope Referring Provider: SIDRA THAKKAR MD 24 HR Interval Summary Free Text/Dictation no acute events per nurse. pt remains pleasant, but confused. she asked my why her straw was not responding to her questions. pt denies any cp/sob. no palpitations. states mildly lightheaded, no dizziness, falls. pt remains in bed. tele reviewed: no events. nocturnal pau in 40s, no av block, pauses. no pau while awake Detailed Summary Respiratory: no complaints Cardiovascular: no complaints Gastrointestinal: no complaints Neurologic: confusion Exam/Review of Systems Vital Signs Vitals Vital Signs Date Time Temp Pulse Resp B/P Pulse Ox O2 Delivery O2 Flow Rate FiO2 02/06/17 08:13 98.0 83 18 185/82 98 02/04/17 16:04 Room Air Intake and Output 02/05/17 02/05/17 02/06/17 15:00 23:00 07:00 Intake Total 1200 ml 450 ml Balance 1200 ml 450 ml Exam Constitutional: alert, No oriented Psych: confusion, no complaints Head: atraumatic, normocephalic Eyes: nl conjunctiva ENMT: nl external ears & nose, No nl lips & teeth Neck: supple, No jvd Respiratory: clear to auscultation, normal air movement Cardiovascular: nl pulses, regular rate and rhythm, systolic murmur, No S3, No S4, No edema, No irregular rhythm Gastrointestinal: non-tender, soft Musculoskeletal: other (decreased muscle mass) Extremities: normal pulses Neurological: DATA SERVICES DEVELOPER II-XII intact, nl speech, nl strength, No nl mental status Skin: nl turgor Results Result Diagram: 02/06/17 0650 02/06/17 0650 Results 24 hrs Laboratory Tests Test 02/06/17 06:50 White Blood Count 6.5 Red Blood Count 3.53 L Hemoglobin 10.4 L Hematocrit 31.8 L Mean Corpuscular Volume 90.1 Mean Corpuscular Hemoglobin 29.5 Mean Corpuscular Hemoglobin Concent 32.7 Red Cell Distribution Width 15.3 H Platelet Count 375 Mean Platelet Volume 9.9 Neutrophils % 67.0 Lymphocytes % 17.6 Monocytes % 11.3 H Eosinophils % 3.1 Basophils % 0.5 Nucleated Red Blood Cells % 0.0 Neutrophils # 4.3 Lymphocytes # 1.1 Monocytes # 0.7 Eosinophils # 0.2 Basophils # 0.0 Nucleated Red Blood Cells # 0.0 Sodium Level 143 Potassium Level 4.0 Chloride Level 109 Carbon Dioxide Level 28 Anion Gap 10 Blood Urea Nitrogen 11 Creatinine 0.77 Glucose Level 89 Calcium Level 9.7 Phosphorus Level 3.6 Magnesium Level 2.1 Vitamin B12 Level 281 Folate 9.5 Medications Medications Current Medications Ondansetron HCl (Zofran Inj) 4 mg Q6H PRN IV NAUSEA AND/OR VOMITING; Start at 14:00 Acetaminophen 650 mg 650 mg Q6H PRN PO PAIN LEVEL 1-3 OR FEVER; Start at 14:00 Ferric Sodium Gluconate Complex/ Sodium Chloride (Ferrlecit/NS) 110 ml @ 100 mls/hr Q24H IVPB Last administered on 02/06/17t 00:18; Admin Dose 100 MLS/HR; Start 02/04/17 at 23:30; Stop 02/07/17 at 00:35 Alprazolam (Xanax) 0.25 mg HS PRN PO ANXIETY; Start 02/05/17 at 21:00 Levothyroxine Sodium (Synthroid) 25 mcg DAILY@06 PO Last administered on t 06:42; Admin Dose 25 MCG; Start 02/06/17 at 06:00 Amlodipine Besylate (Norvasc) 5 mg BID PO ; Start 02/06/17 at 09:00 Procedures Procedures cxr report reviewed in emr provider notes reviewed MARILIN RODRIGUES Feb 06, 2017 10:09
[2017-02-06] MEDS: AMLODIPINE 5 MG TAB PO SCH ×2 (10:17→21:00)
--- NOTE | 2017-02-06 21:31 | CONS ---
Date/Time of Note Date/Time of Note DATE: 02/06/17 TIME: 21:26 Consult Date/Type/Reason Admit Date/Time Feb 05, 2017 at 12:38 Initial Consult Date Type of Consultation: neurology Ordering Provider: SIDRA THAKKAR MD Subjective No acute events, no syncopes, seizures Objective Vital Signs Date Time Temp Pulse Resp B/P Pulse Ox O2 Delivery O2 Flow Rate FiO2 02/06/17 20:00 98.4 88 17 145/86 94 02/04/17 16:04 Room Air Intake and Output 02/05/17 02/05/17 02/06/17 14:59 22:59 06:59 Intake Total 1200 ml 400 ml Balance 1200 ml 400 ml Results/Medications Result Diagram: 02/06/17 0650 02/06/17 0650 Results 24 hrs Laboratory Tests Test 02/06/17 06:50 White Blood Count 6.5 Red Blood Count 3.53 L Hemoglobin 10.4 L Hematocrit 31.8 L Mean Corpuscular Volume 90.1 Mean Corpuscular Hemoglobin 29.5 Mean Corpuscular Hemoglobin Concent 32.7 Red Cell Distribution Width 15.3 H Platelet Count 375 Mean Platelet Volume 9.9 Neutrophils % 67.0 Lymphocytes % 17.6 Monocytes % 11.3 H Eosinophils % 3.1 Basophils % 0.5 Nucleated Red Blood Cells % 0.0 Neutrophils # 4.3 Lymphocytes # 1.1 Monocytes # 0.7 Eosinophils # 0.2 Basophils # 0.0 Nucleated Red Blood Cells # 0.0 Sodium Level 143 Potassium Level 4.0 Chloride Level 109 Carbon Dioxide Level 28 Anion Gap 10 Blood Urea Nitrogen 11 Creatinine 0.77 Glucose Level 89 Calcium Level 9.7 Phosphorus Level 3.6 Magnesium Level 2.1 Vitamin B12 Level 281 Folate 9.5 Medications Current Medications Ondansetron HCl (Zofran Inj) 4 mg Q6H PRN IV NAUSEA AND/OR VOMITING; Start at 14:00 Acetaminophen 650 mg 650 mg Q6H PRN PO PAIN LEVEL 1-3 OR FEVER; Start at 14:00 Ferric Sodium Gluconate Complex/ Sodium Chloride (Ferrlecit/NS) 110 ml @ 100 mls/hr Q24H IVPB Last administered on 02/06/17t 00:18; Admin Dose 100 MLS/HR; Start 02/04/17 at 23:30; Stop 02/07/17 at 00:35 Alprazolam (Xanax) 0.25 mg HS PRN PO ANXIETY; Start 02/05/17 at 21:00 Levothyroxine Sodium (Synthroid) 25 mcg DAILY@06 PO Last administered on 06:42; Admin Dose 25 MCG; Start 02/06/17 at 06:00 Amlodipine Besylate (Norvasc) 5 mg BID PO Last administered on 02/06/17 10:17 ; Admin Dose 5 MG; Start 02/06/17 at 09:00 Assessment/Plan Chief Complaint/Hosp Course NEUROLOGIC EXAM: She is awake, oriented x1 only. She does have fluent speech. Present response to visual threat bilaterally. Pupils reactive sluggishly from 3 to 2 mm bilaterally. Extraocular movements intact. No nystagmus. Symmetrical face. Preserved facial strength and sensation. Tongue is in midline. Palate elevates symmetrically. Motor strength examination shows preservation of strength, increased tone, especially in upper extremities with cogwheeling. Some bradykinesia noticed. Sensory examination grossly intact to light touch and pain. Deep tendon reflexes 2+ upper extremities and knees, absent ankle jerks. Upgoing toes bilaterally. Coordination preserved on finger -to-finger testing. No dysmetria. At times resting fine tremor was noticed, some amount of postural tremor was seen as well in the hands. Gait was not assessed. IMPRESSION: Status post syncopal episode with vasovagal "convulsive syncope" versus less likely seizure. EEG shos no epileptiform activity. No need for antiepileptic medication. Card on case. Dementia and Parkinson disease, not on medications, per family decision. Problems: JIAN CASTAÑEDA MD Feb 06, 2017 21:31
[2017-02-07] VITALS: BP 179/83; PULSE 85; RESP 17
[2017-02-07] MEDS: SOD FERRIC GLUC COMPLX 125 MG in SOD CHLORIDE 0.9% 100 ML IVPB SCH (00:21)
[2017-02-07 04:00] VITALS: BP 178/82; PULSE 70; RESP 17
[2017-02-07] MEDS: LEVOTHYROXINE 25 MCG TAB PO SCH (05:55)
--- NOTE | 2017-02-07 07:38 | PN ---
Date/Time of Note Date/Time of Note DATE: 02/07/17 TIME: 07:36 Assessment/Plan VTE Prophylaxis VTE Prophylaxis Intervention: other Lines/Catheters IV Catheter Type (from Nrsg): Saline Lock Urinary Cath still in place: No Assessment/Plan Assessment/Plan 1. Stable without new pathologic neuro sxs, tele->sinus rhythm 2. Elev BP related to anxiety,will have bP monitoed at home by [facility] 3. Depression and impaired cognition chronic. 4. Will plan on dc today with home [facility]NA eval. Subjective 24 Hr Interval Summary Respiratory: No cough Cardiovascular: No chest pain Gastrointestinal: no complaints Genitourinary: no complaints Musculoskeletal: No back pain Exam/Review of Systems Vital Signs Vitals Vital Signs Date Time Temp Pulse Resp B/P Pulse Ox O2 Delivery O2 Flow Rate FiO2 02/07/17 04:00 70 02/07/17 04:00 99.4 17 178/82 94 02/04/17 16:04 Room Air Intake and Output 02/06/17 02/06/17 02/07/17 15:00 23:00 07:00 Intake Total 930 ml 260 ml Balance 930 ml 260 ml Exam Neck: No jvd Respiratory: clear to auscultation Cardiovascular: regular rate and rhythm Gastrointestinal: soft Extremities: No edema (and no calf tend) Neurological: No focal weakness Results Result Diagram: 02/06/17 0650 02/06/17 0650 Medications Medications Current Medications Ondansetron HCl (Zofran Inj) 4 mg Q6H PRN IV NAUSEA AND/OR VOMITING; Start at 14:00 Acetaminophen (Tylenol Tab) 650 mg Q6H PRN PO PAIN LEVEL 1-3 OR FEVER; Start 02/04/17 at 14:00 Alprazolam (Xanax) 0.25 mg HS PRN PO ANXIETY; Start 02/05/17 at 21:00 Levothyroxine Sodium (Synthroid) 25 mcg DAILY@06 PO Last administered on 05:55; Admin Dose 25 MCG; Start 02/06/17 at 06:00 Amlodipine Besylate (Norvasc) 5 mg BID PO Last administered on 02/06/17 10:17 ; Admin Dose 5 MG; Start 02/06/17 at 09:00 SIDRA THAKKAR MD Feb 07, 2017 07:38
[2017-02-07] MEDS ORDERED: LEVO25TA53 PO (07:39)
[2017-02-07 08:08] VITALS: BP_SYST 187; BP_SYST 87; BP_DIAS 82; RESP 17
[2017-02-07 08:12] VITALS: PULSE 85
[2017-02-07] MEDS: AMLODIPINE 5 MG TAB PO SCH (09:43)
[2017-02-07 11:37] VITALS: BP 167/74; RESP 17
[2017-02-07 12:13] VITALS: PULSE 56
--- NOTE | 2017-02-07 16:05 | CONS ---
Date/Time of Note Date/Time of Note DATE: 02/07/17 TIME: 16:03 Assessment/Plan Assessment/Plan Chief Complaint/Hosp Course Syncope- unclear etiology, likely vasovagal while using commode. pt without events on tele, has nocturnal bradycardia without block/pauses this would not cause syncope. echo with normal lv/valve fxn. mild pericardial effusion, no e/ o tamponade this would not cause syncope. can have f/u study in 2-3 mo. neuro eval negative as well. given cognitive impairment, unclear of benefit from aggressive testing at this point. would cont to monitor after discharge for recurrence. - tele monitoring no events ok to d/c tele - echo obtained, normal lv systolic/valve function, has small pericardial effusion, not HD significant unlikely to be cause of syncope - trop/ekg without ischemic changes - carotid u/s without sig lesion - no e/o seizures on neuro eval - no further testing needed at this time from cardiology perspective. would obtain f/u echo in 2-3 mo to eval for interval change. if recurrent event consider ischemic workup if clinically appropriate. Cognitive impairment- likely chronic with recent progression. defer eval/mgmt to pcp/neuro HTN- on amlodipine. Problems: Consultation Date/Type/Reason Admit Date/Time Feb 05, 2017 at 12:38 Initial Consult Date 02/05/2017 Type of Consultation: cardiology Referring Provider: SIDRA THAKKAR MD 24 HR Interval Summary Free Text/Dictation no acute events. pt still confused. denies palpitaitons, dizziness, lightheadedness, cp/sob. still in bed. tolerating po tele reviewed: nsr, no events/pauses Constitutional: disoriented Detailed Summary ENT: no complaints Respiratory: no complaints Cardiovascular: no complaints Exam/Review of Systems Vital Signs Vitals Vital Signs Date Time Temp Pulse Resp B/P Pulse Ox O2 Delivery O2 Flow Rate FiO2 02/07/17 12:13 56 02/07/17 11:37 98.1 17 167/74 96 02/04/17 16:04 Room Air Intake and Output 02/06/17 02/06/17 02/07/17 15:00 23:00 07:00 Intake Total 930 ml 260 ml Balance 930 ml 260 ml Exam Constitutional: alert, No oriented Psych: confusion, no complaints Head: atraumatic, normocephalic Eyes: nl conjunctiva ENMT: nl external ears & nose, No nl lips & teeth Neck: supple, No jvd Respiratory: clear to auscultation, normal air movement Cardiovascular: nl pulses, regular rate and rhythm, systolic murmur, No S3, No S4, No edema, No irregular rhythm Gastrointestinal: non-tender, soft Musculoskeletal: other (decreased muscle mass) Extremities: normal pulses Neurological: [employer] II-XII intact, nl speech, nl strength, No nl mental status Skin: nl turgor Results Result Diagram: 02/06/17 0650 02/06/17 0650 Imaging Free Text/Dictation cxr report reviewed in emr MARILIN RODRIGUES Feb 07, 2017 16:05
--- NOTE | 2017-02-11 13:48 | DS ---
DATE OF ADMISSION: 02/05/2017 DATE OF DISCHARGE: 02/07/2017 HISTORY OF PRESENT ILLNESS: The patient is an 86-year-old female admitted to the hospital after exp eriencing a syncopal episode approximately 4 hours prior to admission. The latter was unassociated with pathologic cardiopulmonary symptoms either pre- or post. PERTINENT PHYSICAL EXAMINATION VITAL SIGNS: BP 168/80, pulse 70, respirations are 20, she was afebrile. CARDIOPULMONARY: Normal. NEUROLOGIC: Unrevealing except poorly oriented to time. LABORATORY AND DIAGNOSTIC STUDIES: Hematocrit 33.7 on the 27th, 31.8 on the 29th. White count and platelet count were normal. Sedimentation rate was normal. Protime was normal. PTT was prolonged, 50:50 mix allowed near correction but inhibitors still could be present. Chemistries: Electrolyte s were normal. Iron saturation was 17%. Troponin was negative. TSH was 12. Liver tests were norm al. Folate and B12 were normal. Ferritin was 49.4. Immunoelectrophoresis revealed no monoclonal p rotein. Carotid noninvasive vascular study revealed no evidence of hemodynamically significant sten osis. Brain CT scan, moderate intracranial atherosclerosis and chronic small vessel changes. There was moderate cerebral volume loss. Chest x-ray, left basilar atelectasis. Echocardiogram revealed normal left ventricular systolic function, small to moderate pericardial effusion, predominantly an terior without evidence of tamponade. EEG revealed no evidence of active seizure activity. HOSPITAL COURSE: Patient was monitored on telemetry. No dysrhythmia was noted. She was seen by ne urology and cardiology and it was the sense as well as mine that her syncopal episode was related to a vasovagal phenomenon. She did have evidence of mild hypertension. I elected at this point not t o begin therapy and to observe at home given modest agitation in the hospital, this clearly could ca use the latter mentioned elevated blood pressure. DISCHARGE DIAGNOSES: 1. Syncopal episode likely related to vasovagal phenomenon. 2. Anemia that has been chronic. 3. Mild hypertension to be observed as an outpatient. 4. Mild hypothyroidism. PLAN: To be discharged under the care of her family. I thought it would be important to have her t ransferred to an extended care facility for rehabilitation and PT but the family felt strongly that they would like her to discharged home. Synthroid 25 mcg per day will be continued and blood pressu res obtained by the visiting nurse post-discharge. DIET: Regular. Dictated By: SIDRA THAKKAR MD MR/JOEY Conf#: [id number] DID#: [id number]
== END 2017-02-07 12:18 | disposition home or self-care (01) | DRG 312 ==
LOC: E/R 11:16 → MS4 13:11 → OBSVTOIN 02-05 12:38
PROVIDERS: ADMIT Internal Medicine; ATTEND Internal Medicine
DX: R55 Syncope and collapse (principal); G20 Parkinson's disease; F02.80 Dementia in other diseases classified elsewhere, unspecified severity, without behavioral disturbance, psychotic disturbance, mood disturbance, and anxiety; D64.9 Anemia, unspecified; F32.9 Major depressive disorder, single episode, unspecified; I10 Essential (primary) hypertension; N32.81 Overactive bladder; E03.9 Hypothyroidism, unspecified
CPT/HCPCS: 36415; 70450; 71010; 80048; 80053; 80076; 82607; 82728; 82746; 82962; 83540; 83735; 84100; 84443; 84484; 85025; 85335; 85610; 85651; 85730; 86320; 93005; 93306; 93880; 95819; 97162; G0378; J2916; J7030; J7040